=== PATIENT | male | born 1960 | race African-American/Black ===

== ENCOUNTER 2018-04-06 14:03 | Inpatient (IN) | payer MEDICAID ==
[~2018-04-06] VITALS: Ht 196.8 cm; Wt 95.3 kg
--- NOTE | ~2018-04-06 | MORECARE ---
CASE MANAGEMENT DISCHARGE SUMMARY PATIENT: RACHEAL STEVENS UNIT: [id number] ADM DATE: 04/06/18 AGE: 57 : 64 SEX: M ROOM/BED: D.2223 AUTHOR: DANILO,DOC PHYSICIAN: REFERRING PHYSICIAN: FAWN LI MD DATE OF SERVICE: 04/09/18 Discharge Plan Patient Name: RACHEAL STEVENS Facility: [facility]:[place] : 1960 Planned Disposition: Home Anticipated Discharge Date: Discharge Date: 04/08/2018 Expected LOS: 0 Initial Reviewer: [email or web address] Initial Review Date: 04/07/2018 Generated: 04/09/18 5:23 pm DCP- Discharge Planning Updated by [email or web address]: Tahira Haynes on 04/07/18 12:[address] Patient Name: RACHEAL STEVENS Admission Status: ER Accout number: [id number] Admission Date: 04-06-2018 : 1960 Admission Diagnosis: Attending: FAWN LI Current LOS: 1 Anticipated DC Date: Planned Disposition: Home Primary Insurance: MEDICAID [place] PENDING Discharge Planning Comments: CM met with patient to discuss discharge planning, he is alone in the room. He states he lives with his girlfriend. States he is independent with all ADL's and IADL's. States he has been unable to afford his blood pressure and thyroid medication. I have messaged Myrtle Marroquin to see if we can get approval for his medications at discharge. He denies need for [facility] or home health services. Dean with [facility] has confirmed that he is now Medicaid pending. CM will continue to follow and assist with discharge planning/needs. Smoking Tobacco Packing Machine Hand: Tahira Haynes DCPIA - Discharge Planning Initial Assessment Updated by [email or web address]: Tahira Haynes on 04/07/18 1:31 pm * Is the patient Alert and Oriented? Yes * How many steps to enter\exit or inside your home? 4/0 * PCP No PCP * [facility] [address] * Preadmission Environment Home with Family * ADLs Independent * Equipment None * List name and contact numbers for known caregivers / representatives who currently or will assist patient after discharge: Linda - girlfriend - [phone] * Verbal permission to speak to the caregivers and representatives has been obtained from the patient. Yes * Community resources currently utilized None * Additional services required to return to the preadmission environment? No * Can the patient safely return to the preadmission environment? Yes * Has this patient been hospitalized within the prior 30 days at any hospital? No Last DP export: 04/07/18 12:43 Patient Name: RACHEAL STEVENS Page [id number] at 1623 All edits/amendments must be made on the electronic document DICTATION DATE: 04/09/181621 BUTTON FACING MACHINE OPERATOR: SWAPNA 04/09/181621 RPT#: [id number] DC DATE:04/08/18 STATUS: DIS IN [facility] [address] [place] [address] END OF REPORT
--- NOTE | ~2018-04-06 | EC ---
PATIENT:RACHEAL STEVENS DATE OF SERVICE: 04/06/18 SEX: M MEDICAL RECORD: [id number] DATE OF : 64 LOCATION:D.MS [address] AGE OF PATIENT: 57 ADMISSION DATE: 04/06/18 REFERRING PHYSICIAN: INTERPRETING PHYSICIAN: ANA MARIA STARKEY MD ECHOCARDIOGRAM REPORT ECHO CHARGES 4 ECHO COMPLETE Date: 04/07/18 CLINICAL DIAGNOSIS: CVA ECHOCARDIOGRAPHIC MEASUREMENTS (adult normal given) AC root (d.<3.7cm) 3.6 cm LV Septum d (<1.2 cm> 1.7 cm Valve Excursion 2.4 cm LV Septum (systole) 2.0 cm Left Atria (s.<4.0cm> 3.9 cm LVPW d(<1.2cm) 1.7 cm RV (d.<2.3cm) 2.3 cm LVPW (sytole) 2.2 cm LV diastole(<5.6CM) 4.9 cm MV E-F(>70mm/sec) cm LV systole 2.4 cm LVOT Diameter 2.3 cm MV exc.(>10mm) cm Est.ejection fraction (50-75%) % DOPPLER: LVIT cm/sec A 53.0 cm/sec E 34.0 cm/sec LA cm/sec RVSP 20.0 mmHg LVOT 80.0 cm/sec AOP1/2T m/s Asc. Ao 138 cm/sec RVOT 44.0 cm/sec RA cm/sec PA 73.0 cm/sec AV Gradient Peak 7.6 mmHg AV Mean 3.7 mmHg AV Area 2.1 cm MV Gradient Peak 2.0 mmHg MV Mean 0.62 mmHg MV Area cm COMMENTS: Medic Technician: Lizandro ARCEOE Transformer Shop Supervisor: 1 Dr. Starkey TAPE# PACS Pericardial Effusion N DATE OF SERVICE: 04/06/2018 FINDINGS: 1. Left ventricular chamber size is within normal limits. Left ventricular systolic function is normal. Overall ejection fraction estimated 50%. 2. Left atrium, right atrium, and right ventricular chamber sizes are within normal limits. 3. Valvular structures have normal structure and motion. 4. Doppler interrogation reveals no significant valvular insufficiency or stenosis. ECHOCARDIOGRAM REPORT [id number] RACHEAL STEVENS 5. No evidence of pericardial effusion or left ventricular thrombus. 6. No cardiac source of neurologic emboli. TRANSINT:[id number] Voice Confirmation ID: [id number] DOCUMENT ID: [id number] ANA MARIA STARKEY MD at 1704 CC: [id number] DICTATION DATE: 04/07/18 1046 GENERATOR MAN: 04/07/18 1129 DIS IN 04/08/18 [place] [id number] [place] [id number]
--- NOTE | ~2018-04-06 | MORECARE ---
CASE MANAGEMENT DISCHARGE SUMMARY PATIENT: RACHEAL STEVENS UNIT: [id number] ADM DATE: 04/06/18 AGE: 57 : 64 SEX: M ROOM/BED: D.2223 AUTHOR: BESS CARRASCO PHYSICIAN: REFERRING PHYSICIAN: FAWN LI MD DATE OF SERVICE: 04/07/18 Discharge Plan Patient Name: RACHEAL STEVENS [facility] [facility] 1960 Planned Disposition: Home Anticipated Discharge Date: Discharge Date: Expected LOS: Initial Reviewer: [email or web address] Initial Review Date: 04/07/2018 Generated: 04/07/18 2:31 pm DCPIA - Discharge Planning Initial Assessment Updated by [email or web address]: Tahira Haynes on 04/07/18 1:31 pm * Is the patient Alert and Oriented? Yes * How many steps to enter\exit or inside your home? 4/0 * PCP No PCP * Pharmacy [facility] [address] * Preadmission Environment Home with Family * ADLs Independent * Equipment None * List name and contact numbers for known caregivers / representatives who currently or will assist patient after discharge: Linda girlfriend - [phone] * Verbal permission to speak to the caregivers and representatives has been obtained from the patient. Yes * Community resources currently utilized None * Additional services required to return to the preadmission environment? No * Can the patient safely return to the preadmission environment? Yes * Has this patient been hospitalized within the prior 30 days at any hospital? No Patient Name: RACHEAL STEVENS Page [id number] at 1332 All edits/amendments must be made on the electronic document DICTATION DATE: 04/07/18 1331 WELFARE DIRECTOR: SWAPNA 04/07/18 1331 RPT#: [id number] DC DATE: STATUS: ADM IN [facility] [address] [place] [address] END OF REPORT
--- NOTE | ~2018-04-06 | MORECARE ---
CASE MANAGEMENT DISCHARGE SUMMARY PATIENT: RACHEAL STEVENS UNIT: [id number] ADM DATE: 04/06/18 AGE: 57 : 64 SEX: M ROOM/BED: D.2223 AUTHOR: DANILODOC PHYSICIAN: REFERRING PHYSICIAN: FAWN LI MD DATE OF SERVICE: 04/07/18 Discharge Plan Patient Name: RACHEAL STEVENS Facility: [facility]:[place] : 1960 Planned Disposition: Home Anticipated Discharge Date: Discharge Date: Expected LOS: Initial Reviewer: [email or web address] Initial Review Date: 04/07/2018 Generated: 04/07/18 2:43 pm DCP- Discharge Planning Updated by [email or web address]: Tahira Haynes on 04/07/18 12:[address] Patient Name: RACHEAL STEVENS Admission Status: ER Accout number: [id number] Admission Date: 04-06-2018 : 1960 Admission Diagnosis: Attending: FAWN LI Current LOS: 1 Anticipated DC Date: Planned Disposition: Home Primary Insurance: MEDICAID [place] PENDING Discharge Planning Comments: CM met with patient to discuss discharge planning, he is alone in the room. He states he lives with his girlfriend. States he is independent with all ADL's and IADL's. States he has been unable to afford his blood pressure and thyroid medication. I have messaged Myrtle Lopez to see if we can get approval for his medications at discharge. He denies need for DME or home health services. Dean with [facility] has confirmed that he is now Medicaid pending. CM will continue to follow and assist with discharge planning/needs. Manager Purchasing: Tahira Haynes DCPIA - Discharge Planning Initial Assessment Updated by [email or web address]: Tahira Haynes on 04/07/18 1:31 pm * Is the patient Alert and Oriented? Yes * How many steps to enter\exit or inside your home? 4/0 * PCP No PCP * [facility] [address] * Preadmission Environment Home with Family * ADLs Independent * Equipment None * List name and contact numbers for known caregivers / representatives who currently or will assist patient after discharge: Linda - girlfriend - [phone] * Verbal permission to speak to the caregivers and representatives has been obtained from the patient. Yes * Community resources currently utilized None * Additional services required to return to the preadmission environment? No * Can the patient safely return to the preadmission environment? Yes * Has this patient been hospitalized within the prior 30 days at any hospital? No Last DP export: 04/07/18 12:31 Patient Name: RACHEAL STEVENS Page [id number] at 1343 All edits/amendments must be made on the electronic document DICTATION DATE: 04/07/18 1343 AVIATION PROJECT ENGINEER: SWAPNA 04/07/18 1343 RPT#: [id number] RI DATE: STATUS: ADM IN [facility] [address] [place] [address] END OF REPORT
[2018-04-06 14:31] VITALS: BP 203/124
[2018-04-06 15:00] VITALS: BP 194/110
[2018-04-06 15:29] LABS: BASOPHILS 1.2 % (0-2); EOSINOPHILS 2.1 % (0-7); HEMATOCRIT 34.4 % (42.0-54.0); HEMOGLOBIN 11.8 g/dL (13.5-17.5); IMMATURE GRANULOCYTES 0.2 % (0-5); MCH 34.4 pg (26.0-34.0); MCHC 34.3 g/dL (31.0-37.0); MCV 100.3 fL (80.0-100.0); MEAN PLATELET VOLUME 10.3 fL (7.4-10.4); MONOCYTES 7.8 % (2-11); NEUTROPHILS 58.7 % (40-80); PLATELET COUNT 175 10x3/uL (130-400); RBC 3.43 10x6/uL (4.20-6.10); WBC 4.3 10x3/uL (4.8-10.8)
[2018-04-06 15:32] LABS: INR 1.09 (0.85-1.17); PROTIME 13.8 SECONDS (11.6-15.0)
[2018-04-06 15:33] LABS: APTT 36.9 SECONDS (22.8-39.4)
[2018-04-06 15:40] VITALS: BP 161/90
[2018-04-06 15:47] LABS: ALBUMIN 3.4 g/dL (3.4-5.0); ALKALINE PHOSPHATASE 65 U/L (46-116); BILIRUBIN - TOTAL 0.27 mg/dL (0.2-1.3); CALC OSMOLALITY 270 mosm/kg (275-300); CALCIUM 8.4 mg/dL (8.5-10.1); CARBON DIOXIDE 26.8 mmol/L (21.0-32.0); CHLORIDE - SERUM 100 mmol/L (98-107); CKMB 4.7 U/L (0.0-3.6); CREATININE - SERUM 1.2 mg/dL (0.6-1.3); GLUCOSE 85 mg/dL (74-106); POTASSIUM - SERUM 3.6 mmol/L (3.5-5.1); PROTEIN - SERUM 6.9 g/dL (6.4-8.2); SODIUM 136 mmol/L (136-145); TROPONIN-I 0.023 ng/mL (0.000-0.060); UREA NITROGEN 12 mg/dL (7-18); eGFR NON AFRICAN AMERICAN 67 mL/min (90-120)
[2018-04-06 15:49] LABS: CREATINE KINASE 1147 UL (21-232)
[2018-04-06 16:00] VITALS: BP 188/111
[2018-04-06 16:13] LABS: ALT (SGPT) 10 U/L (10-68)
[2018-04-06 17:01] VITALS: BP 141/89
[2018-04-06 22:17] VITALS: BP 117/91
[2018-04-07 01:08] VITALS: BP 121/89
[2018-04-07 02:53] VITALS: BP 121/89; BMI 24.6
[2018-04-07 05:08] VITALS: BP 140/89
[2018-04-07 06:30] LABS: EOSINOPHILS 1.9 % (0-7); HEMOGLOBIN 11.8 g/dL (13.5-17.5); IMMATURE GRANULOCYTES 0.2 % (0-5); LYMPHOCYTES 33.7 % (15-50); MCH 33.9 pg (26.0-34.0); MCHC 33.7 g/dL (31.0-37.0); MCV 100.6 fL (80.0-100.0); MEAN PLATELET VOLUME 11.3 fL (7.4-10.4); MONOCYTES 8.4 % (2-11); NEUTROPHILS 54.8 % (40-80); PLATELET COUNT 192 10x3/uL (130-400); RBC 3.48 10x6/uL (4.20-6.10); RDW 14.4 % (11.5-14.5); WBC 4.2 10x3/uL (4.8-10.8)
[2018-04-07 06:35] LABS: ALBUMIN 3.4 g/dL (3.4-5.0); ANION GAP 10.1 mmol/L (8-16); BILIRUBIN - TOTAL 0.44 mg/dL (0.2-1.3); CALCIUM 8.6 mg/dL (8.5-10.1); CARBON DIOXIDE 29.5 mmol/L (21.0-32.0); CREATININE - SERUM 1.1 mg/dL (0.6-1.3); POTASSIUM - SERUM 3.6 mmol/L (3.5-5.1); PROTEIN - SERUM 6.5 g/dL (6.4-8.2)
[2018-04-07 08:27] VITALS: BP 155/96
[2018-04-07 12:02] VITALS: Ht 196.8 cm; Wt 95.3 kg
[2018-04-07 12:20] VITALS: BP 157/93
[2018-04-07 20:00] VITALS: BP 153/90
[2018-04-08] VITALS: BP 145/59
[2018-04-08 04:00] VITALS: BP 144/96
[2018-04-08 06:27] LABS: BASOPHILS 1.4 % (0-2); EOSINOPHILS 1.9 % (0-7); HEMATOCRIT 34.4 % (42.0-54.0); HEMOGLOBIN 11.6 g/dL (13.5-17.5); IMMATURE GRANULOCYTES 0.2 % (0-5); LYMPHOCYTES 36.4 % (15-50); MCH 33.8 pg (26.0-34.0); MCHC 33.7 g/dL (31.0-37.0); MCV 100.3 fL (80.0-100.0); MEAN PLATELET VOLUME 11.4 fL (7.4-10.4); MONOCYTES 8.6 % (2-11); NEUTROPHILS 51.5 % (40-80); PLATELET COUNT 176 10x3/uL (130-400); RBC 3.43 10x6/uL (4.20-6.10); RDW 14.2 % (11.5-14.5); WBC 4.2 10x3/uL (4.8-10.8)
[2018-04-08 07:18] LABS: ANION GAP 12.6 mmol/L (8-16); CARBON DIOXIDE 26.2 mmol/L (21.0-32.0); CREATININE - SERUM 1.4 mg/dL (0.6-1.3); POTASSIUM - SERUM 3.8 mmol/L (3.5-5.1)
[2018-04-08 08:41] VITALS: BP 168/96
[2018-04-08] MEDS ORDERED: NORVASC5 MG PO (14:58)
[2018-04-08] MEDS ORDERED: SYNTHROID50 MCG PO (14:59)
== END 2018-04-08 17:35 | disposition home or self-care (01) | DRG 57 ==
LOC: D.ER 14:03 → D.EDHOLD 15:15 → D.MS 15:15
PROVIDERS: Family Medicine; Internal Medicine Nephrology
DX: G81.91 Hemiplegia, unspecified affecting right dominant side (principal); I10 Essential (primary) hypertension; R47.9 Unspecified speech disturbances; E05.90 Thyrotoxicosis, unspecified without thyrotoxic crisis or storm

== ENCOUNTER 2018-04-10 09:34 | Emergency (ER) | payer MEDICAID ==
[~2018-04-10] VITALS: Ht 196.8 cm; Wt 88.6 kg
[~2018-04-10 09:34] MED LIST: NORVASC5 MG PO; SYNTHROID50 MCG PO
[2018-04-10 09:36] VITALS: Ht 196.8 cm; Wt 88.6 kg
[2018-04-10] MEDS ORDERED: OMEPRAZOLE20 M1 PO (12:55)
[2018-04-10] MEDS ORDERED: ARTHROTEC EC 71 EACH PO (12:55)
[2018-04-10 13:24] VITALS: BP 155/92
== END 2018-04-10 13:24 | disposition home or self-care (01) ==
LOC: D.ER 09:34
DX: S81.811A Laceration without foreign body, right lower leg, initial encounter (principal); V49.9XXA Car occupant (driver) (passenger) injured in unspecified traffic accident, initial encounter; Y93.89 Activity, other specified; Y92.410 Unspecified street and highway as the place of occurrence of the external cause; F17.200 Nicotine dependence, unspecified, uncomplicated